=== PATIENT | female | born 1970 | race Caucasian/White ===

== ENCOUNTER 2017-01-02 13:19 | Emergency (ER) | payer OTHER ==
[~2017-01-02] VITALS: Ht 160 cm; Wt 54.5 kg
[~2017-01-02 13:19] MED LIST: NOMED
[2017-01-02 13:28] VITALS: BP 115/77; PULSE 70; RESP 16; O2SAT 100
--- NOTE | 2017-01-02 14:17 | DRSVH ---
PROCEDURE: X-RAY RIGHT FOOT COMPLETE, MINIMUM THREE VIEWS ([id number]) INDICATIONS: pain, previous surgery TECHNIQUE: 3 views of the foot were acquired. COMPARISON: None. FINDINGS: Bones: Severe osteopenia. Hindfoot degenerative change. Midfoot degenerative change. No acute fractur es. Soft tissues: No tibiotalar joint effusion. Achilles tendon appears normal. IMPRESSION: 1. No acute right foot pathology. Severe osteopenia possibly related to disuse. 2. Hindfoot degenerative change. Dictated by: Jordi Macias M.D. on 01/02/2017 at 14:13 Approved by: Jordi Macias M.D. on 01/02/2017 at 14:15
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
[2017-01-02] MEDS ORDERED: NPR500T PO (16:25)
[2017-01-02 16:44] VITALS: BP 118/75; PULSE 71; O2SAT 100
== END 2017-01-02 16:42 | disposition home or self-care (01) ==
LOC: SED 13:19
DX: M79.671 Pain in right foot (principal); X58.XXXA Exposure to other specified factors, initial encounter; Y93.01 Activity, walking, marching and hiking; Y92.89 Other specified places as the place of occurrence of the external cause; Y99.8 Other external cause status; Z88.5 Allergy status to narcotic agent